=== PATIENT | male | born 1950 | race Caucasian/White ===

== ENCOUNTER 2017-01-12 14:00 | Inpatient (IN) | payer MEDICARE, MEDICAID ==
[~2017-01-12] VITALS: Ht 167.6 cm; Wt 93.8 kg
--- NOTE | ~2017-01-12 | DS ---
PATIENT'S NAME: SAILAJA KEYS [facility] AGE: 66 Y [address] ROOM: [place] [address] LOCATION: [facility] [place] ADMIT DATE: 01/13/2017 Discharge Summary DISCHARGE DATE: 01/17/2017 FAMILY PHYSICIAN: Dayne Meyer MD ATTENDING PHYSICIAN: Wm Leonardo ADMISSION DIAGNOSIS: Right renal mass. DISCHARGE DIAGNOSES: 1. Oncocytoma of right kidney. 2. Hypoxia. REASON FOR HOSPITALIZATION: The patient is a pleasant, 66-year-old male who was incidentally noted to have a 4.2 cm right renal mass. The family ultimately opted for operative intervention. They were explained the risks, benefits, indications, and alternatives, wished to proceed,and consented freely for the patient. PROCEDURE PERFORMED: Right hand-assisted laparoscopic radical nephrectomy, January 13, 2017. HOSPITAL COURSE: The patient had a relatively uneventful hospital course and underwent the above-stated procedure without complication. Prior to his discharge home, his pain was well controlled, and he was tolerating regular diet. He did have some loose bowel movements. A C difficile stool was checked, and that was negative. He also had some persistent oxygen requirement postoperatively at 3 to 4 L oxygen per nasal cannula, and so a chest x-ray was obtained with only findings consistent with a patchy left basilar opacity consistent with either atelectasis or scarring. We also did have Physical Therapy and Occupational Therapy work with the patient on ambulation. CONDITION OF PATIENT ON DISCHARGE: Good. DISCHARGE INSTRUCTIONS: The patient was given routine discharge instructions for a laparoscopic right nephrectomy. FOLLOWUP: We will plan to see the patient back for followup in [facility] [place] in February for postoperative visit. We will also plan for him to follow up with his primary care provider to check his oxygen saturation in 7 to 10 days to see if we can get him off the oxygen. He will be getting transferred today to his nursing facility. PATIENT'S NAME: SAILAJA KEYS [facility] AGE: 66 Y [address] ROOM: [address] [address] LOCATION: [facility] [place] ADMIT DATE: 01/13/2017 Discharge Summary DISCHARGE DATE: 01/17/2017 FAMILY PHYSICIAN: Dayne Meyer MD ATTENDING PHYSICIAN: Jorden,Wm MD PRAMOD ESTRADA/benigno /[id number] CC: Dayne Meyer MD d: 01/18/17 1225 t: 01/19/17 0915, DISCHARGE SUMMARY
--- NOTE | ~2017-01-12 | OR ---
PATIENT'S NAME: SAILAJA KEYS [facility] AGE: 66 Y [address] ROOM: [address] [address] [place] [facility] [place]MIT DATE: 01/12/2017 OR/Procedure Report DISCHARGE DATE: FAMILY PHYSICIAN: Dayne Meyer MD ATTENDING PHYSICIAN: AG LEONARDO SURGEON: Ag Leonardo MD SPRINKLER FITTER: Patrick Martinez MD DATE OF PROCEDURE: 01/13/2017 PREOPERATIVE DIAGNOSIS: Right renal mass. POSTOPERATIVE DIAGNOSIS: Right renal mass. PROCEDURE PERFORMED: Right hand-assisted laparoscopic radical nephrectomy. INDICATIONS FOR PROCEDURE: The patient is a pleasant, 66-year-old male who was incidentally noted on CT scan to have a 4.2 cm right renal mass. The power of net ui developer was explained the risks, benefits, indications, and alternatives to the above procedure, wished to proceed, and consented freely for the patient. ANESTHESIA: General. COMPLICATIONS: None. DRAINS: Indwelling Singh catheter to gravity drainage. ESTIMATED BLOOD LOSS: 50 mL. DESCRIPTION OF OPERATION: The patient was brought back to the operating room and was placed on the OR table in the supine position. A surgical time-out was called where patient identification, procedure site, and procedure were then verified. We also did verify that the patient received an IV cephalosporin antibiotic within an hour of beginning the procedure. We then carefully placed a 16-Andorran Singh catheter easily into the patient's urinary bladder, and this was left to gravity drainage. The patient was then carefully re-positioned in a modified right flank position where a right lower quadrant incision was made after he was prepped and draped in the usual sterile fashion. We deepened this until we identified the fascia and were able to enter the peritoneum sharply. We then placed a GelPort assist device into this area. There was some mild oozing along the ascending colon, and a single interrupted silk suture was used to oversew this area. We then insufflated the abdomen. We placed a 12 mm trocar just lateral and slightly cephalad to his umbilicus as well as a 5 mm trocar in the right epigastrium. There was no evidence of trauma with port placement. We then carefully PATIENT'S NAME: SAILAJA KEYS [facility] AGE: 66 Y [address] ROOM: [id number] [place], [place] [address] [place]: [facility] [place] ADMIT DATE: 01/12/2017 OR/Procedure Report DISCHARGE DATE: FAMILY PHYSICIAN: Dayne Meyer MD ATTENDING PHYSICIAN: AG LEONARDO surveyed his abdomen, and there was no obvious evidence of metastatic disease visually. I then began by first mobilizing the peritoneum lateral to the ascending colon. The ascending colon was then swept medially, and we continued in this plane until we identified the duodenum. I then carefully kocherized the duodenum. The duodenum was somewhat stuck up to his kidney, and in kocherizing the duodenum, I did see an area along the duodenum that I wanted the general surgeons to look at to make sure they were not concerned for any serosal tear or injury of the duodenum. Dr. Pj Izaguirre was called into the room to inspect the area, and he did not believe that this was a serosal tear, so we did not put any sutures at this area. We then continued in this plane until I was able to identify the inferior vena cava as well as renal vein. It did appear that he had just a single renal vein. I then continued and dissected along the psoas muscle and along the posterior side of the kidney until I was able to first identify a lower pole renal artery which I divided with a laparoscopic stapling device. I then divided the upper pole renal artery as well as vein using the laparoscopic stapling device. I then completely mobilized the kidney, and this was an adrenal-sparing approach. I then divided the ureter. I inspected for hemostasis, which was excellent. I then removed the kidney through the hand assist port site, and this was sent off for pathologic analysis. The 12 mm port site was then closed with a Rito-Ha needle carrier using a 0 Vicryl suture. We then closed the rectus fascia in a running fashion with a #1 looped Monocryl suture. The wounds had been infiltrated with local anesthetic. The skin was closed with a subcuticular 4-0 Monocryl suture. The skin incision sites were then covered with Dermabond. The patient was then awoken from general anesthesia where he was extubated without event, transferred to the recovery bed, and transported to the recovery room in good condition. He did tolerate the procedure very well. MD PRAMOD ESTRADA/laural /[id number] CC: Dayne Meyer MD d: 01/13/17 1106 t: 01/13/17 1742, OPERATIVE SUMMARY
--- NOTE | ~2017-01-12 | PUL ---
PATIENT'S NAME: SAILAJA KEYS [facility] AGE: 66 Y [address] ROOM: [address] [address] LOCATION: [facility] [place] ADMIT DATE: 01/13/2017 Pulmonary DISCHARGE DATE: 01/17/2017 FAMILY PHYSICIAN: Dayne Meyer MD ATTENDING PHYSICIAN: Wm Leonardo NAME OF PROCEDURE: Overnight Pulse Oximetry DATE OF PROCEDURE: January 15 to January 16, 2017 REASON FOR EXAM: Nocturnal hypoxemia RESULTS: The test was performed on room air. The recording time was 8 hours, 12 minutes, and 8 seconds, with a total valid sampling time of 8 hours, 10 minutes, and 44 seconds. The highest pulse was 78, lowest pulse was 58, with a mean pulse of 64. The highest SpO2 was 94%, lowest SpO2 was 76%, with a mean SpO2 of 85.4%. The patient spent 6 hours, 13 minutes and 52 seconds, representing 76.2% of the total sleep time. The desaturation event index was significantly elevated at 51.2. PHYSICIAN INTERPRETATION: The patient has evidence of significant and severe nocturnal hypoxia and would qualify for supplemental oxygen as per Medicare criteria. However, because of the severity of his nocturnal hypoxia with an elevated desaturation event index a sleep study is recommended at this time. MD АНДРЕЙ YE/jonathan /[id number] dtt: 01/18/17 1512 , SACHA GODWIN dtd: 01/18/17 1318
[2017-01-12] MEDS ORDERED: PERIDEX15 ML MM (16:31)
[2017-01-12] MEDS ORDERED: ZOCOR40 MG PO (16:32)
[2017-01-12] MEDS ORDERED: REQUIP0.5 MG PO (16:32)
[2017-01-12] MEDS ORDERED: DEPAKOTE DELAY250 MG PO ×2 (16:34→16:38)
[2017-01-12] MEDS ORDERED: ZADITOR 0.025% O5 ML OPHTH ×2 (16:35→16:54)
[2017-01-12] MEDS ORDERED: MYRBETRIQ50 MG PO (16:36)
[2017-01-12] MEDS ORDERED: FLOMAX0.4 MG PO (16:37)
[2017-01-12] MEDS ORDERED: NIASPAN500 MG PO (16:37)
[2017-01-12] MEDS ORDERED: VITAMIN D1000 UNIT PO (16:39)
[2017-01-12] MEDS ORDERED: CITROMA296 ML PO (16:40)
[2017-01-12] MEDS ORDERED: OSCAL500 MG PO (16:41)
[2017-01-12] MEDS ORDERED: FLONASE 50 MCG/16 GM NOSE (16:42)
[2017-01-12] MEDS ORDERED: LEVOTHROID(SYN75 MCG PO (16:42)
[2017-01-12] MEDS ORDERED: LACTAID1 TAB PO ×2 (16:43→16:47)
[2017-01-12] MEDS ORDERED: TYLENOL EXTRA500 MG PO (16:44)
[2017-01-12] MEDS ORDERED: LIORESAL10 MG PO (16:45)
[2017-01-12] MEDS ORDERED: SEROQUEL25 MG PO (16:45)
[2017-01-12] MEDS ORDERED: ZOLOFT50 MG PO (16:46)
[2017-01-12] MEDS ORDERED: MILK OF MA400 MG/5 M PO (16:48)
[2017-01-12] MEDS ORDERED: NORCO 5-325 TA1 EACH PO ×2 (16:50→16:51)
[2017-01-12] MEDS ORDERED: TYLENOL325 MG PO (16:53)
--- NOTE | 2017-01-12 17:24 | NUR ---
Pt is 66 y/o male admit for renal cancer/right nephrectomy for . Pt alert and oriented x3. Pt is DNR. 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 Pt resides at [facility] in [place]. Has weakness on right side. Plan is for clear liquids until midnight and then NPO for R) nephrectomy.
[2017-01-12 18:13] LABS: BASOPHIL # 0.1 K/uL (0.0-0.2); BASOPHIL % 1.1 %; EOSINOPHIL # 0.3 K/uL (0.0-0.5); EOSINOPHIL % 3.8 %; HEMATOCRIT 41.2 % (37.0-53.0); HEMOGLOBIN 13.8 g/dL (11.0-16.0); IMMATURE GRANULOCYTE % 0.4 %; LYMPHOCYTE # 2.8 K/uL (0.8-4.0); LYMPHOCYTE % 38.3 %; MCH 32.2 pg (27.0-34.0); MCHC 33.5 gm/dL (32.0-36.5); MCV 96.3 fl (83.0-98.0); MONOCYTE # 1.2 K/uL (0.0-1.0); MONOCYTE % 16.7 %; MPV 9.6 fl (9.4-12.4); NEUTROPHIL % 39.7 %; NRBC % 0 /100WBC (0-0.00); PLATELET COUNT 198 K/uL (150-450); RBC 4.28 M/uL (3.50-5.50); RDW-CV 13.6 % (11.9-14.6); WBC 7.4 K/uL (4.0-11.0)
[2017-01-12 18:29] LABS: ALBUMIN 3.2 gm/dL (3.5-5.0); ALK PHOS 88 IU/L (33-138); ALT 21 IU/L (12-78); AST 15 IU/L (10-40); BLOOD UREA NITROGEN 21 mg/dL (6-24); CALCIUM 8.7 mg/dL (8.5-10.5); CHLORIDE 107 mMol/L (96-110); CO2 28 mMol/L (22-32); CREATININE 0.7 mg/dL (0.6-1.3); ESTIMATED GFR (MDRD EQUATION) > 60; SODIUM 143 mMol/L (135-145); TOTAL BILIRUBIN 0.3 mg/dL (0.0-1.5); TOTAL PROTEIN 6.5 g/dL (6.0-8.4)
--- NOTE | 2017-01-12 18:49 | NUR ---
Oriented to self and place. Patient is aware he is having surgery in the a.m. DNR. Limb alert to R)arm for contracture from CP. Has ankle brace for R) leg, on when up. VSS, afebrile, on RA. Denies N/V/D and pain though has hx of some spinal stenosis. PIVs to LH and LFA s/l'd. On clear liquids then NPO @[place]. Mag Cit[email or web address] IVF to start @[place]. Up w/2 assist, GB transfer to commode or w/c.
--- NOTE | 2017-01-13 05:51 | NUR ---
PT TRANSFERRED TO OR AT 0545 VIA BED. VSS ON RA. DENIED PAIN. ABLE TO MAKE BASIC NEEDS KNOW.
--- NOTE | 2017-01-13 05:52 | NUR ---
Significant Event: AAOX3, BUT STUNTED MENTALITY. HAS CP. PT NPO SINCE MIDNIGHT. PIV TO L HAND AND LFA. PRE OP ANTIBIOTICS ADMINISTERED PER ORDERS. DENIED PAIN THROUGHOUT SHIFT. VSS ON RA. ABLE TO MAKE BASIC NEEDS KNOWN. TRANSFERRED TO OR FOR NEPHRECTOMY AT 0545 VIA BED. Follow up:
--- NOTE | 2017-01-13 10:30 | NUR ---
SLEEPING. DENIES PAIN.
--- NOTE | 2017-01-13 10:54 | NUR ---
report called to cesar, on msu
--- NOTE | 2017-01-13 13:24 | NUR ---
Reviewed chart, pt had nephrectomy today and resides at [facility] in [place], will return there when ready for dc. Hat And Cap Opener will follow.
--- NOTE | 2017-01-13 17:33 | NUR ---
Oriented to self and place. Abdominal incisions x3 glued and intact. IVs to LFA/LH, one s/l'd, one w/IVF @120. Clear liquid diet, tolerating. Singh draining small amount of light yellow urine 225UOP. Singh to be pulled in a.m. May be incontinent; has urgency. On 3liters O2. May titrate to RA as able. Encourage IS, needs assistance. Postop VSS, fever of 100.0, then up to chair w/lift, IS, then 98.7. Can stand/pivot, slow ambulate w/2 assist (but normally uses hemiwalker).
--- NOTE | 2017-01-14 04:39 | NUR ---
SIGNIFICANT EVENT: Patient alert, answers questions appropriately. 650 mg Tylenol x1 given at 1940, with noted relief - 2200 dose not given. Patient denies any further pain, refuses additional pain medication. Patient has CP, contractured R) arm/hand. Samantha had 1575 out - will be DC'd at 0600 per MD order. 1379 IV and 540 PO in. No BM this shift. VSS on RA - some tachypnea. Cooperative with most cares, refused turns x5.
[2017-01-14 05:51] LABS: BASOPHIL % 0.1 %; HEMATOCRIT 39.3 % (37.0-53.0); HEMOGLOBIN 13.4 g/dL (11.0-16.0); IMMATURE GRANULOCYTE # 0.1 K/uL (0.0-0.3); IMMATURE GRANULOCYTE % 0.5 %; LYMPHOCYTE # 1.6 K/uL (0.8-4.0); LYMPHOCYTE % 14.1 %; MCH 32.9 pg (27.0-34.0); MCHC 34.1 gm/dL (32.0-36.5); MCV 96.6 fl (83.0-98.0); MONOCYTE # 1.4 K/uL (0.0-1.0); MONOCYTE % 11.6 %; MPV 9.8 fl (9.4-12.4); NEUTROPHIL # (ANC) 8.6 K/uL (1.4-9.0); NEUTROPHIL % 73.7 %; NRBC % 0 /100WBC (0-0.00); PLATELET COUNT 185 K/uL (150-450); RBC 4.07 M/uL (3.50-5.50); RDW-CV 13.6 % (11.9-14.6); WBC 11.7 K/uL (4.0-11.0)
[2017-01-14 06:09] LABS: CALCIUM 8.3 mg/dL (8.5-10.5); POTASSIUM 4.5 mMol/L (3.7-5.1)
[2017-01-14 06:11] LABS: ANION GAP 15.5 (10.0-19.0); CREATININE 1.2 mg/dL (0.6-1.3)
--- NOTE | 2017-01-14 14:25 | NUR ---
Significant Event: Pt c/o intermittent right flank pain, good relief with [place]. Up in recliner for a few hours with 2 max assist. Contractured right arm d/t CP. Can answer yes/no questions. Needs fed. Not passing flatus. Removed holt this am, inc of urine frequently. Continues on 4 liters O2. Refuses to be repositioned. 3 stab/incisional sites to right side approximated with skin glue. Follow up:
--- NOTE | 2017-01-14 17:13 | NUR ---
Significant Event: Feeder, full liquid. Incont of urine, 2 assist to turn and reposition. Likes to remain on back. c/o sharp abd pain after turning. 2 Golden @ 1700. Follow up:
--- NOTE | 2017-01-15 03:28 | NUR ---
Significant Event: Patient alert and oriented X4. 2 person assist. Refusing repositioning all shift. Aloe vesta applied to buttocks with brief changes. Incontinent of urine X2, calls for urinal. Vitals stable and on 4 liters oxygen. 3 lap sites to R) side abdomen, with skin glue. no drainage. 2 saline locks to L) arm. [place] given at 0240. Relief noted. No BM. States he is not passing gas, refused MOM. On full liquid diet. History of cerebral palsy. R) arm contracted. LImb alert. Follow up: Monitor BS
[2017-01-15 06:05] LABS: BASOPHIL % 0.3 %; EOSINOPHIL % 0.1 %; HEMATOCRIT 40.3 % (37.0-53.0); HEMOGLOBIN 13.5 g/dL (11.0-16.0); IMMATURE GRANULOCYTE % 0.3 %; LYMPHOCYTE # 2.8 K/uL (0.8-4.0); LYMPHOCYTE % 24.3 %; MCH 32.6 pg (27.0-34.0); MCHC 33.5 gm/dL (32.0-36.5); MCV 97.3 fl (83.0-98.0); MONOCYTE # 1.4 K/uL (0.0-1.0); MPV 10.2 fl (9.4-12.4); NEUTROPHIL # (ANC) 7.4 K/uL (1.4-9.0); NRBC % 0 /100WBC (0-0.00); PLATELET COUNT 175 K/uL (150-450); RBC 4.14 M/uL (3.50-5.50); WBC 11.7 K/uL (4.0-11.0)
[2017-01-15 06:45] LABS: ANION GAP 9.1 (10.0-19.0); CALCIUM 8.8 mg/dL (8.5-10.5); CREATININE 1.2 mg/dL (0.6-1.3); POTASSIUM 4.1 mMol/L (3.7-5.1)
--- NOTE | 2017-01-15 15:10 | NUR ---
Significant Event: Pt c/o intermittent right side pain, [place] given after lunch. Pt couldn't take his pills this am, had a large emesis at that time. Hypoactive bowel sounds,abd distended. Has only been taking in sips of fluids. Up in recliner x2 with much encouragement, refused PT. Refuses to reposition. Inc urine frequently. 3 sites to right abd intact with skin glue. Continues on 4 liters O2. Follow up:
--- NOTE | 2017-01-16 03:36 | NUR ---
Significant Event: Patient alert and oriented X4. History of cerebral palsy. Answers yes and no to questions appropriately. Calls for urinal/bedpan. Incontinent several times of stool. All liquid stools, passing gas. Patient is bloated, possibly plugged up, will pass on to day nurse to ask for suppository. Came from [facility] in [place], and plan to return there upon discharge. 3 stab sites to R) side held with skin glue. Was on 4 liters oxygen and does not wear oxygen at home. Trend ox ordered for tonight. refuses repositioning. Follow up: Monitor oxygen
[2017-01-16 06:17] LABS: BASOPHIL # 0.1 K/uL (0.0-0.2); BASOPHIL % 0.5 %; EOSINOPHIL # 0.1 K/uL (0.0-0.5); EOSINOPHIL % 0.5 %; HEMOGLOBIN 13.2 g/dL (11.0-16.0); IMMATURE GRANULOCYTE % 0.4 %; LYMPHOCYTE # 3.3 K/uL (0.8-4.0); LYMPHOCYTE % 33.9 %; MCV 96.9 fl (83.0-98.0); MONOCYTE # 1.3 K/uL (0.0-1.0); MONOCYTE % 13.4 %; MPV 9.5 fl (9.4-12.4); NEUTROPHIL # (ANC) 4.9 K/uL (1.4-9.0); NEUTROPHIL % 51.3 %; NRBC % 0 /100WBC (0-0.00); PLATELET COUNT 184 K/uL (150-450); RBC 4.13 M/uL (3.50-5.50); RDW-CV 13.7 % (11.9-14.6); WBC 9.6 K/uL (4.0-11.0)
[2017-01-16 06:33] LABS: ANION GAP 9.2 (10.0-19.0); CALCIUM 8.8 mg/dL (8.5-10.5); CREATININE 1.2 mg/dL (0.6-1.3); POTASSIUM 4.2 mMol/L (3.7-5.1)
--- NOTE | 2017-01-16 10:05 | NUR ---
1005 Faxed some updates to [facility] with a note that patient might be ready for return to them tomorrow #[phone]. 1215 Tiffany from [facility] called, got my updates but will need to know how the C-diff sample turns out. 1320 Spoke to charge nurse Yin, c-diff was negative. 1330 Called Tiffany at [facility] #[phone] and left a message that c-diff was negative. 1340 Introduced self to patient and mom. She wondered how patient would get back to [facility]? I told her [facility] van would come and get him and that I have sent them updates already today. [facility] is aware he might be ready for return tomorrow. She will not be up here tomorrow as she has to be at the [facility] at 1100 to complete a Social Security call for her son. I will call her if he gets released. .
--- NOTE | 2017-01-16 17:11 | NUR ---
Is alert & oriented.Hx cerebal palsy so does not verbalize alot.Will answer yes & no questions.C-diff was neg.Has had 3 loose stools today.Uses urinal most of the time.May need help to eat.Has SL in Lt.hand & wrist.Rt.leg does not work well & Rt.arm contracted up.Can stand & pivot with 1-2 assists.Abd.distended.Has 2 abd stab sites & Rt.side abd incision that is glued.Has not wanted anything for pain.O2 on at 4L/NC.Does not use O2 at home.
--- NOTE | 2017-01-17 04:29 | NUR ---
DNR POD#4 NEPHRECTOMY, ABD W/MIDLINE STAB X 1, RUQ INCISION W/GLUE, RLQ INCISION W/GLUE AND INTACT WITH NO DRAINAGE, REPORTS NO PAIN THIS SHIFT. LEFT HAND PIV SALINE LOCKED, VS WNL, O2 SATS >90% ON 4L PER NC, INC OF BOWEL/BLADDER, UP W/2 S/P TO BSC FOR BMS IF NEEDED, TOTAL LIFT/WHEELCHAIR, RUE CONTRACTURED R/T CEREBRAL PALSY. REQUIRES ASSIST W/MEALS, TAKES PILLS WHOLE IN PUDDING, NEEDS FLUIDS PUSHED. PLANNED DC TO [facility] WHERE PATIENT LIVED BEFORE TODAY IF DISCHARGED.
--- NOTE | 2017-01-17 11:30 | NUR ---
[address] Leonardo to see when he would be rounding to know if patient would be able to return to SNF today but his voicemail was full and not able to leave a message. Updated Charge Nurse Zee - she stated she would continue to try and reach him. [address] Leonardo is here working on orders now. Called Tiffany and [facility] - she needs updates right away and confirmation that the c-diff was cleared before accepting back. 1245 Faxed updates to [facility]. 1325 Tiffany called back and they will be on their way in 10 minutes so plan for a [phone] dismissal. Updated charge nurse Zee and she will communicate that to the nurse. 1330 called patients mom, Kayla, and updated on discharge time - she had no questions or concerns.
--- NOTE | 2017-01-17 12:17 | NUR ---
Patient alert/oriented. Hx cerebral palsy w/ right upper extremity contracture. Up with heavy 2 assist or full lift. O2 at 4 liters. Takes pills with vanilla pudding. Needs assist with meal setup. Incisions to right abdomen glued and approximated. Uses urinary with assist. Patient has been on scheduled tylenol for pain and has denied need for anything more. DNR. Francesca MART
--- NOTE | 2017-01-17 16:10 | NUR ---
Patient was going to be transferred to [facility] in [place]. Nurse to nurse report was called. Family was aware of transfer. Patient was sent with wheelchair van operator first responder and transfer packet with 4 Liters O2 per nasal cannula at 1430. Francesca MART
== END 2017-01-17 14:40 | DRG 658 ==
LOC: GMSU 15:31
PROVIDERS: ADMIT Urology
PROC: 0TT04ZZ Resection of Right Kidney, Percutaneous Endoscopic Approach (ICD-10-PCS; principal; 2017-01-13)
DX: D30.01 Benign neoplasm of right kidney (principal); N31.9 Neuromuscular dysfunction of bladder, unspecified; E78.5 Hyperlipidemia, unspecified; E03.9 Hypothyroidism, unspecified; G47.33 Obstructive sleep apnea (adult) (pediatric); J30.9 Allergic rhinitis, unspecified; G80.9 Cerebral palsy, unspecified; G40.909 Epilepsy, unspecified, not intractable, without status epilepticus; G25.81 Restless legs syndrome; Z66 Do not resuscitate
CPT/HCPCS: G0378; J0690; J1100; J2270; J2405; J7030